=== PATIENT | female | born 1995 | race Caucasian/White ===

== ENCOUNTER 2024-05-07 20:26 | Emergency (ER) | payer BC ==
[~2024-05-07] VITALS: Ht 172.7 cm; Wt 90.9 kg
[~2024-05-07 20:26] MED LIST: EPIPEN 2-PAK1 MG/ML IM; NASAL SPRAY NS; QVAR0.04 MG/AC IH
[2024-05-07 20:28] VITALS: TEMP 98.1
[2024-05-07] MEDS ORDERED: Albuterol/Ipratropium 3 MG-0.5 MG/3 ML Neb Soln IH ONE (20:30)
[2024-05-07] MEDS ORDERED: dexAMETHasone 10 MG/ML VIAL IV ONE (20:30)
[2024-05-07 20:40] LABS: BASO # 0.1 K/mm3 (0.0-0.2); BASO % 0.4 % (0.0-2.0); EOS # 1.2 K/mm3 (0.0-0.7); EOS % 8.2 % (0.0-4.0); GRAN # 9.3 K/mm3 (1.4-6.5); GRAN % 66.5 % (42.2-75.2); HEMOGLOBIN 13.7 g/dl (12.5-16.0); LYMPH # 2.5 K/mm3 (1.2-3.4); LYMPH % 18.1 % (20.0-51.0); MEAN CELL VOLUME 84 fl (80.0-100.0); MEAN CORPUSCULAR HEMOGLOBIN 28 pg (27-31); MEAN CORPUSCULAR HGB CONC 33 g/dl (33.0-37.0); MONO # 0.9 K/mm3 (0.1-0.6); MONO % 6.4 % (1.7-9.3); PLATELET COUNT 285 K/mm3 (130-400); REDCELL DISTRIBUTION WIDTH-CV 13.2 % (11.5-14.5)
[2024-05-07 21:06] LABS: ALBUMIN 4.2 g/dL (3.5-5.0); CALCIUM 9.6 mg/dL (8.4-10.2); CREATININE, serum 0.83 mg/dL (0.57-1.11); POTASSIUM 3.9 mEq/L (3.5-4.5)
[2024-05-07] MEDS ORDERED: ZITHROMAX Z PA250 MG PO (21:13)
[2024-05-07] MEDS ORDERED: Azithromycin 250 MG TAB PO ONE (21:15)
[2024-05-07 21:24] VITALS: BP 147/79; PULSE 105
[2024-05-07 21:27] LABS: BILIRUBIN,TOTAL 0.3 mg/dL (0.2-1.2)
[2024-05-10 09:56] LABS: TOTAL PROTEIN 7.6 g/dl (6.2-8.1)
== END 2024-05-07 21:30 | disposition home or self-care (01) ==
LOC: COL.ER 20:26
PROVIDERS: Emergency Medicine
DX: J45.901 Unspecified asthma with (acute) exacerbation (principal); J18.9 Pneumonia, unspecified organism; Z79.899 Other long term (current) drug therapy
CPT/HCPCS: J1100